=== PATIENT | male | born 2005 | race Caucasian/White ===

== ENCOUNTER 2025-03-22 20:25 | Emergency (ER) | payer MEDICAID ==
[~2025-03-22] VITALS: Ht 182.9 cm; Wt 63.6 kg
[2025-03-22 20:30] VITALS: BP 130/78; PULSE 78; RESP 18; TEMP 98.6; O2SAT 99
--- NOTE | 2025-03-22 21:15 | RADIOLOGY REPORT ---
EXAM: DI HAND, COMPLETE (3VW MIN) REASON FOR EXAM: HAND PAIN TECHNIQUE: PA, lateral, and oblique views of the right hand are submitted for review. COMPARISON: None FINDINGS: The bones demonstrate normal mineralization. No fracture or dislocation is identified. Th e soft tissues are unremarkable. IMPRESSION: No acute fracture or dislocation.
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
[2025-03-22] MEDS: ondansetron 4mg rapidly disintigrating tab PO STA (21:45)
[2025-03-22] MEDS: ibuprofen tablet 400 MG TABLET PO STA (21:45)
[2025-03-22] MEDS: acetaminophen 325mg tablet PO STA (21:46)
--- NOTE | 2025-03-22 23:02 | RADIOLOGY REPORT ---
CLINICAL INDICATION: jaw pain TECHNIQUE: DI MANDIBLE,LIMITED LESS 4VWS Comparison: None FINDINGS/IMPRESSION: : There is no evidence of acute fracture or dislocation. The temporomandibular joints are grossly intact and normal in appearance. Soft tissues are unremarkable.
== END 2025-03-22 22:13 | disposition home or self-care (01) ==
LOC: ER 20:26
DX: S00.03XA Contusion of scalp, initial encounter (principal); S20.223A Contusion of bilateral back wall of thorax, initial encounter; S20.213A Contusion of bilateral front wall of thorax, initial encounter; Y04.0XXA Assault by unarmed brawl or fight, initial encounter; Y93.89 Activity, other specified; Y92.89 Other specified places as the place of occurrence of the external cause; Y99.8 Other external cause status
CPT/HCPCS: 70100; 73130; 99284